=== PATIENT | male | born 1970 | race Asian ===

== ENCOUNTER 2017-05-07 13:46 | Emergency (ER) | payer OTHER ==
[~2017-05-07] VITALS: Ht 162.6 cm; Wt 51.4 kg
[~2017-05-07 13:46] MED LIST: ALLERGY RELIEF10 M1 PO; ZANTAC150 MG PO
[2017-05-07 14:56] LABS: HEMATOCRIT 47.4 % (38.0-50.0); HEMOGLOBIN 16.9 G/DL (12.5-16.6); MCH 32.2 PG (29.0-34.0); MCHC 35.7 G/DL (30.0-36.0); MCV 90.3 FL (86-99); PLATELET COUNT 260 K/uL (156-360); RBC DIS.WIDTH-CV 12.5 % (11.8-14.6); RBC DIS.WIDTH-SD 41.7 % (39-53); RED BLOOD COUNT 5.25 M/uL (4.00-5.50); WHITE BLOOD COUNT 7.1 K/uL (4.1-10.2)
[2017-05-07 15:05] LABS: CHLORIDE 104 mEq/L (99-109); POTASSIUM 3.9 mEq/L (3.7-5.4); SODIUM 137 mEq/L (136-147)
[2017-05-07 15:07] LABS: GLUCOSE 111 mg/dL (70-99)
[2017-05-07 15:11] LABS: GFR ESTIMATE (CALCULATED) > 59 mL/min/ (58.99-99999); UREA NITROGEN (BUN) 16 mg/dL (9-23)
[2017-05-07 15:18] LABS: TROP-I INTERPRETATION NEGATIVE; TROPONIN-I < 0.01 ng/mL (0.0-0.30)
[2017-05-07 17:20] VITALS: BP 155/86
== END 2017-05-07 17:44 | disposition left against medical advice (07) ==
LOC: EME 13:46
PROVIDERS: Emergency Medicine
DX: R07.9 Chest pain, unspecified (principal); K21.9 Gastro-esophageal reflux disease without esophagitis; Z87.891 Personal history of nicotine dependence
CPT/HCPCS: 71046; 80048; 84484; 85027; 93005; 99281; 99284